=== PATIENT | female | born 1955 | race Caucasian/White ===

== ENCOUNTER 2018-06-13 10:04 | Emergency (ER) | payer OTHER ==
[~2018-06-13] VITALS: Ht 154.9 cm; Wt 68.0 kg
== END 2018-06-13 22:05 | disposition home or self-care (01) ==
LOC: ER 10:04
DX: R42 Dizziness and giddiness (principal); K29.70 Gastritis, unspecified, without bleeding; D32.0 Benign neoplasm of cerebral meninges

== ENCOUNTER 2018-11-29 10:24 | Emergency (ER) | payer OTHER ==
[~2018-11-29] VITALS: Ht 154.9 cm; Wt 68.0 kg
[2018-11-29] MEDS ORDERED: PREVACID30 M1 PO (10:40)
[2018-11-29] MEDS ORDERED: COZAAR25 MG PO (10:41)
== END 2018-11-29 18:16 | disposition home or self-care (01) ==
LOC: ER 10:24
DX: B34.9 Viral infection, unspecified (principal)

== ENCOUNTER → 2019-10-29 | Emergency (ER) | payer OTHER ==
[~2019-10-29] VITALS: Ht 157.5 cm; Wt 65.8 kg
[~2019-10-29] MED LIST: CLONAZEPAM1 MG; COZAAR25 MG PO; MICROZIDE12.5 MG; PREVACID30 M1 PO; TOPROL XL25 M1
== END | disposition left against medical advice (07) ==
LOC: ER 22:08
DX: Z53.20 Procedure and treatment not carried out because of patient's decision for unspecified reasons (principal)

== ENCOUNTER 2020-08-07 19:00 | Emergency (ER) | payer OTHER ==
[~2020-08-07] VITALS: Ht 154.9 cm; Wt 63.5 kg
== END 2020-08-08 07:01 | disposition home or self-care (01) ==
LOC: ER 19:00
DX: R20.0 Anesthesia of skin (principal)

== ENCOUNTER → 2020-11-27 | Emergency (ER) | payer OTHER ==
[~2020-11-27] VITALS: Ht 154.9 cm; Wt 63.5 kg
[~2020-11-27] MED LIST changes: +COZAAR100 MG; +VITAMIN B-122000 MC1; +VYTORIN 10-101 EACH
== END | disposition home or self-care (01) ==
LOC: ER 21:51
DX: R00.2 Palpitations (principal); F41.8 Other specified anxiety disorders

== ENCOUNTER 2023-01-24 05:47 | Emergency (ER) | payer OTHER ==
[~2023-01-24] VITALS: Ht 154.9 cm; Wt 59.0 kg
[2023-01-24] MEDS ORDERED: CLONAZEPAM0.5 MG (06:02)
== END 2023-01-24 07:06 | disposition home or self-care (01) ==
LOC: ER 05:47
DX: J06.9 Acute upper respiratory infection, unspecified (principal)